=== PATIENT | female | born 1925 | race Caucasian/White ===

== ENCOUNTER 2016-12-28 20:02 | Inpatient (IN) | payer OTHER, BC ==
[~2016-12-28] VITALS: Ht 162.6 cm; Wt 73.0 kg
[~2016-12-28 20:02] MED LIST: ASPIR 8181 M1 PO; CALCIUM 600 MG1 EACH PO; CARVEDILOL6.25 MG PO; LISINOPRIL10 MG PO; OCUVITE TABLET1 EACH PO; OMEPRAZOLE40 M1 PO; PRAVASTATIN SOD40 MG PO
[2016-12-28 20:20] LABS: EOSINOPHIL (%) 0 % (0-5); HEMATOCRIT 31.1 % (36.0-46.0); IMMATURE GRANULOCYTE (%) 0.3 % (0.0-0.7); INSTRUMENT ABS NEUTROPHIL CT 5.4 K/uL; LYMPHOCYTE COUNT 1.4 K/uL (1.0-2.8); MCHC 34.1 G/DL (30.0-36.0); MCV 90.9 FL (83-99); MEAN PLAT.VOLUME 10.7 uM^3 (9.5-12.4); MONOCYTE (%) 3.2 % (3-12); MONOCYTE COUNT 0.2 K/uL (0-0.8); NEUTROPHIL COUNT 5.4 K/uL (1.8-6.4); PLATELET COUNT 157 K/uL (156-360); RBC DIS.WIDTH-CV 12.8 % (11.8-14.6); RBC DIS.WIDTH-SD 42.2 % (39-53); RED BLOOD COUNT 3.42 M/uL (3.80-5.20); WHITE BLOOD COUNT 7.1 K/uL (4.1-10.2)
[2016-12-28 20:28] LABS: AMYLASE 41 IU/L (1-118); CHLORIDE 107 mEq/L (99-109); SODIUM 138 mEq/L (136-147)
[2016-12-28 20:30] LABS: GLUCOSE 135 mg/dL (70-99)
[2016-12-28 20:31] LABS: ANION GAP 13 MEQ/L (2-14)
[2016-12-28 20:33] LABS: SERUM ETHYL ALCOHOL < 10 mg/dL
[2016-12-28 20:34] LABS: GFR ESTIMATE (CALCULATED) > 59 mL/min/
[2016-12-28 20:35] LABS: UREA NITROGEN (BUN) 23 mg/dL (9-23)
[2016-12-28 20:37] LABS: LIPASE 13 U/L (1.0-51.0)
[2016-12-28 20:40] LABS: TROP-I INTERPRETATION NEGATIVE; TROPONIN-I < 0.01 ng/mL (0.0-0.30)
[2016-12-28] MEDS ORDERED: COZAAR100 MG PO (23:18)
[2016-12-29] VITALS (19 sets, daily range): BP systolic 100–152; BP diastolic 51–80
[2016-12-29 01:33] LABS: INTER. NORMALIZED RATIO 1.1; PROTHROMBIN TIME 12.7 SEC (10.2-12.9)
[2016-12-29 01:46] LABS: PTT 20.4 SEC (25-37)
[2016-12-29 04:14] LABS: METH RESISTANT S AUREUS PCR NEGATIVE (NEGATIVE)
[2016-12-29 04:31] LABS: PROBE CHECK PASS; SPECIMEN PROCESSING CONTROL PASS
[2016-12-29 07:13] LABS: EOSINOPHIL (%) 0 % (0-5); HEMATOCRIT 31.8 % (36.0-46.0); IMMATURE GRANULOCYTE (%) 0.5 % (0.0-0.7); IMMATURE GRANULOCYTE COUNT 0.1 K/uL; LYMPHOCYTE COUNT 1.8 K/uL (1.0-2.8); MCH 30.3 PG (29.0-34.0); MCV 89.1 FL (83-99); MEAN PLAT.VOLUME 10.7 uM^3 (9.5-12.4); MONOCYTE COUNT 1.1 K/uL (0-0.8); NEUTROPHIL (%) 72.6 % (45-76); PLATELET COUNT 161 K/uL (156-360); RBC DIS.WIDTH-CV 12.7 % (11.8-14.6); RBC DIS.WIDTH-SD 41.3 % (39-53); RED BLOOD COUNT 3.57 M/uL (3.80-5.20)
[2016-12-29 07:18] LABS: INTER. NORMALIZED RATIO 1.2; PROTHROMBIN TIME 13.3 SEC (10.2-12.9)
[2016-12-29 07:21] LABS: PTT 30.2 SEC (25-37)
[2016-12-29 07:36] LABS: ANION GAP 11 MEQ/L (2-14); CHLORIDE 106 MEQ/L (99-109); MAGNESIUM 1.6 mg/dl (1.3-2.7); POTASSIUM 3.6 MEQ/L (3.7-5.4); SAMPLE HEMOLYSIS CHECK 0; SAMPLE ICTERIC CHECK 0; SAMPLE LIPEMIA CHECK 0; SODIUM 140 MEQ/L (136-147)
[2016-12-29 07:42] LABS: GFR ESTIMATE (CALCULATED) > 59 mL/min/; UREA NITROGEN (BUN) 25 mg/dL (9-23)
[2016-12-29 07:54] LABS: GLUCOSE 86 mg/dL (70-99)
[2016-12-30] VITALS (13 sets, daily range): BP systolic 0–153; BP diastolic 0–83
[2016-12-31 03:58] VITALS: BP 144/66
[2016-12-31 05:12] LABS: CHLORIDE 108 mEq/L (99-109); SODIUM 139 mEq/L (136-147)
[2016-12-31 05:14] LABS: GLUCOSE 102 mg/dL (70-99)
[2016-12-31 05:15] LABS: ANION GAP 6 MEQ/L (2-14)
[2016-12-31 05:18] LABS: GFR ESTIMATE (CALCULATED) > 59 mL/min/
[2016-12-31 05:19] LABS: UREA NITROGEN (BUN) 18 mg/dL (9-23)
[2016-12-31 08:36] VITALS: BP 144/80
[2016-12-31 11:15] VITALS: BP 164/77
[2016-12-31 16:09] VITALS: BP 156/74
[2016-12-31 19:55] VITALS: BP 133/65; BP 150/70
[2017-01-01 00:20] VITALS: BP 133/65
[2017-01-01 03:45] VITALS: BP 137/67
[2017-01-01 05:41] LABS: EOSINOPHIL (%) 3.8 % (0-5); EOSINOPHIL COUNT 0.2 K/uL (0-0.3); HEMATOCRIT 27.9 % (36.0-46.0); IMMATURE GRANULOCYTE (%) 0.2 % (0.0-0.7); INSTRUMENT ABS NEUTROPHIL CT 2.9 K/uL; MCH 30.9 PG (29.0-34.0); MCHC 34.8 G/DL (30.0-36.0); MCV 88.9 FL (83-99); MONOCYTE (%) 13.5 % (3-12); MONOCYTE COUNT 0.8 K/uL (0-0.8); NEUTROPHIL (%) 48.2 % (45-76); NEUTROPHIL COUNT 2.9 K/uL (1.8-6.4); RBC DIS.WIDTH-SD 42.4 % (39-53); RED BLOOD COUNT 3.14 M/uL (3.80-5.20)
[2017-01-01 06:00] LABS: ANION GAP 6 MEQ/L (2-14); CHLORIDE 104 MEQ/L (99-109); GFR ESTIMATE (CALCULATED) > 59 mL/min/; GLUCOSE 111 mg/dL (70-99); POTASSIUM 3.8 MEQ/L (3.7-5.4); SAMPLE HEMOLYSIS CHECK 0; SAMPLE ICTERIC CHECK 0; SAMPLE LIPEMIA CHECK 0; SODIUM 138 MEQ/L (136-147); UREA NITROGEN (BUN) 11 mg/dL (9-23)
[2017-01-01 06:09] LABS: MEAN PLAT.VOLUME 10.4 uM^3 (9.5-12.4); PLAT.SUFFICIENCY DECREASED
[2017-01-01 06:10] LABS: PLATELET COUNT 108 K/uL (156-360)
[2017-01-01 08:42] VITALS: BP 175/87
[2017-01-01] MEDS ORDERED: COZAAR25 MG PO (13:22)
== END 2017-01-01 15:28 | disposition home or self-care (01) | DRG 308 ==
LOC: EME → TRA 20:02 → EDBD 20:02 → EME 20:02 → 4WEST 12-29 00:08 → EDOF 12-29 00:08 → 4EAST 12-29 00:08 → ENRESERV 12-29 00:09 → 4WEST 12-29 02:37 → ENRESERV 12-30 11:19 → 4EAST 12-30 15:19
PROVIDERS: Emergency Medicine; Internal Medicine; Internal Medicine Critical Care Medicine; Specialist
DX: I44.2 Atrioventricular block, complete (principal); E78.5 Hyperlipidemia, unspecified; K21.9 Gastro-esophageal reflux disease without esophagitis; I10 Essential (primary) hypertension; R07.9 Chest pain, unspecified; M84.48XS Pathological fracture, other site, sequela; I61.3 Nontraumatic intracerebral hemorrhage in brain stem; S02.92XA Unspecified fracture of facial bones, initial encounter for closed fracture; S06.9X9A Unspecified intracranial injury with loss of consciousness of unspecified duration, initial encounter; S12.500A Unspecified displaced fracture of sixth cervical vertebra, initial encounter for closed fracture; S01.81XA Laceration without foreign body of other part of head, initial encounter; S00.10XA Contusion of unspecified eyelid and periocular area, initial encounter; R32 Unspecified urinary incontinence; M25.78 Osteophyte, vertebrae; E87.6 Hypokalemia; Z82.49 Family history of ischemic heart disease and other diseases of the circulatory system; Z95.0 Presence of cardiac pacemaker; Z85.3 Personal history of malignant neoplasm of breast; Z80.6 Family history of leukemia; Z86.73 Personal history of transient ischemic attack (TIA), and cerebral infarction without residual deficits
CPT/HCPCS: 70450; 70480; 71010; 72125; 72170; 80048; 81003; 82150; 83605; 83690; 83735; 84100; 84484; 85025; 85610; 85730; 86850; 86900; 86901; 87040; 87641; 93005; 94799; 97530 GO; 97530 GP; 99281; 99285; C1779; C1785; C1892; C1894; C1898; G0480; J0461; J0610; J0690; J1200; J1644; J2250; J2405; J2543; J3010; J3370; J7042; J7050; S0020